=== PATIENT | male | born 1930 | race Caucasian/White ===

== ENCOUNTER → 2017-01-31 | Day surgery (SDC) | payer MEDICARE, OTHER ==
[~2017-01-31] MED LIST: ALFU10TA2 PO; ASPI1TAB69 PO; ATOR40TA16 PO; BUPIVACAINE HCL PF 0.5% 30 ML VIAL ONE; HYDR-2376 PO; HYDR-3583 PO; ISOS20TA PO; LYRI50CA PO; METO100T9 PO; METO50TA PO; NITR1SUB3 SL; PROPOFOL 200 MG/20 ML AMP IV ONE; RAPA8CAP PO; TRIAMCINOLONE ACETONIDE 40 MG/ML VIAL I-ARTICULR ONE; WARF-23 PO
--- NOTE | 2017-02-02 23:22 | M6 ---
cc: CASSIE COHEN M.D. DATE 01/31/2017 1931 PROCEDURE Fluoroscopically guided injection bilateral cervical facet joints (bilateral C3-4, C4-5 and C5-6 facet joints). History and physical was completed and signed. Consent was signed. Procedure site was marked. Medications were listed and reconciled. Pain score was recorded. Allergies were noted. Time out was taken. Fluoroscopy time was recorded where applicable. Sedation was administered or directed by Dr. Cohen. The patient was given oxygen. The patient was monitored by a registered nurse. Total procedure time was greater than 15 minutes. IV was started, blood pressure cuff, pulse oximeter and EKG were applied. The patient was placed in the prone position on a Barrett table sedated with small amounts of propofol titrated to effect. Vital signs were monitored and remained stable throughout the procedure. Cervical area was prepped with alcohol and 10% Betadine solution and draped with sterile drapes. Fluoroscopy was used to visualize the bilateral cervical facet joints at C3-4, C4-5 and C5-6. Separate sterile 3-1/2-inch 25-gauge spinal needles were advanced into these joints under fluoroscopic guidance. There was negative aspiration for blood or any other type of fluid. At each location, the patient was given 1 mL of Marcaine 0.5% which contained 10 mg of Kenalog. Following the procedure, the patient was taken to the recovery room with stable vital signs neurologically intact. He will be evaluated immediately and with followup to determine if he has a subjective decrease in his usual pain and a corresponding objective increase in his functional capabilities. W. MD ANJANA River/ /8:10 AM /11:09 PM
== END | disposition home or self-care (01) ==
LOC: PHSDC 06:45
PROVIDERS: ATTEND Pain Medicine Interventional Pain Medicine
DX: M54.2 Cervicalgia (principal)
CPT/HCPCS: 64490; 64491; 64492; 99152; J3301